=== PATIENT | male | born 2000 | race Caucasian/White ===

== ENCOUNTER 2021-07-13 23:20 | Emergency (ER) | payer BC ==
[2021-07-13] MEDS: Lidocaine 1% 30 ML SDV INJECT ONE (23:30)
== END 2021-07-13 23:57 | disposition home or self-care (01) ==
LOC: VM.ED 23:20
DX: S61.213A Laceration without foreign body of left middle finger without damage to nail, initial encounter (principal)
CPT/HCPCS: 12001; 99282-25; 99283

== ENCOUNTER 2022-10-31 18:08 | Emergency (ER) | payer BC ==
[2022-10-31] MEDS: Lidocaine 1% 10 ML MDV INJECT ONE (18:32)
== END 2022-10-31 19:05 | disposition home or self-care (01) ==
LOC: VM.ED 18:08
DX: S61.411A Laceration without foreign body of right hand, initial encounter (principal); W26.8XXA Contact with other sharp object(s), not elsewhere classified, initial encounter
CPT/HCPCS: 12002; 99282; 99283; J3490